=== PATIENT | female | born 1995 | race Caucasian/White ===

== ENCOUNTER 2018-06-01 16:01 | Emergency (ER) | payer SELFPAY ==
[2018-06-01] MEDS ORDERED: FENTANYL CITR 100 MCG/2 ML ONE (16:25)
[2018-06-01] MEDS ORDERED: ONDANSETRON 4 MG/2 ML VIAL ONE (16:25)
[2018-06-01 16:38] LABS: Absolute Lymphocytes (CBC) 2.6 K/uL (0.7-4.9); Absolute Monocytes 0.5 K/uL (0.1-1.3); Absolute Neutrophil 3.1 K/uL (1.8-8.0); Basophils % 1.1 % (0-1.3); Eosinophils % 1.2 % (0-4.4); Hematocrit 40.4 % (36.0-45.0); Lymphocytes % 40.9 % (15.3-44.8); MPV 9.2 fL (7.6-11.3); Monocytes % 7.2 % (3.3-12.3); RBC Red Blood Cell Count 4.45 M/uL (3.86-4.86)
--- NOTE | 2018-06-01 16:48 | RAD REPORT ---
EXAM DESCRIPTION: CT - CTHCSPWOC - 06/01/2018 4:40 pm CLINICAL HISTORY: Fall, head and neck injury COMPARISON: None. TECHNIQUE: Axial 5 mm thick images of the head were obtained. Axial 2 mm thick images of the cervic al spine were obtained with sagittal and coronal reconstruction images generated and reviewed. All CT scans are performed using dose optimization technique as appropriate and may include automated exposure control or mA/KV adjustment according to patient size. FINDINGS: No intracranial hemorrhage, mass, edema or acute intracranial finding. Ventricles are norm al. No extra-axial fluid collections. Mastoid air cells and paranasal sinuses are clear. No globe or orbit abnormality seen. No skull fracture or acute bone finding. Cervical bodies are normal in height. No subluxation abnormality. There is reversal of the usual cerv ical lordosis that could be muscle spasm or positioning artifact. No disk space narrowing. No fractur e or acute bony abnormality. Central canal detail is inherently limited. No paraspinal mass or hematoma. IMPRESSION: Negative CT head examination for acute or significant finding. No fracture or acute cervical spine finding. Central canal detail is inherently limited.
[2018-06-01 16:50] LABS: Potassium 3.6 mmol/L (3.5-5.1)
--- NOTE | 2018-06-01 17:37 | ER ---
Nurse's Notes [facility] Name: Areli Benitez Age: 22 yrs Sex: Female : 1995 Arrival Date: 06/01/2018 Time: 16:07 Bed 6 Private MD: Diagnosis: Unspecified injury at unspecified level of cervical spinal cord-Stinger/Burner Presentation: 06/01 16:11 Presenting complaint: EMS states: Playing football, slung over a friends shoulder, the jl7 friend dropped her and when she landed she landed on her chin. C/O neck, bilateral shoulder, bilateral arms and bilateral hand pain. Transition of care: patient was not received from another setting of care. Onset of symptoms was June 01, 2018. Risk Assessment: Do you want to hurt yourself or someone else? Patient reports no desire to harm self or others. Initial Sepsis Screen: Does the patient meet any 2 criteria? No. Patient's initial sepsis screen is negative. Does the patient have a suspected source of infection? No. Patient's initial sepsis screen is negative. Care prior to arrival: Cervical collar in place. Placed on backboard. 16:11 Method Of Arrival: EMS: [facility] 16:11 Acuity: PAM 3 jl7 Triage Assessment: 16:13 General: Appears in no apparent distress. uncomfortable, Behavior is cooperative, jl7 appropriate for age, anxious. Pain: Complains of pain in neck, shoulders, arms, hands. Neuro: Level of Consciousness is awake, alert, obeys commands, Oriented to person, place, time, situation. Cardiovascular: Patient's skin is warm and dry. Respiratory: Airway is patent Respiratory effort is even, unlabored, Respiratory pattern is regular, symmetrical. Derm: Skin is pink, warm \T\ dry. Musculoskeletal: Reports pain in neck, bilateral shoulders, arms and hands. DESTINATION IMAGINATION COORDINATOR: 17:03 LMP 05/24/2018 jl7 Historical: - Allergies: 16:13 No Known Allergies; jl7 - Home Meds: 16:13 None [Active]; jl7 - PMHx: 16:13 None; jl7 - PSHx: 16:13 None; jl7 - Immunization history:: Adult Immunizations unknown. - Social history:: Smoking status: Patient/guardian denies using tobacco. - Ebola Screening: : No symptoms or risks identified at this time. Screenin:15 Abuse screen: Denies threats or abuse. Denies injuries from another. Nutritional jl7 screening: No deficits noted. Tuberculosis screening: No symptoms or risk factors identified. Fall Risk IV access (20 points). Total Gaston Fall Scale indicates No Risk (0-24 pts). Assessment: 16:15 General: See triage assessment. jl7 17:00 Reassessment: Patient appears in no apparent distress at this time. Patient and/or jl7 family updated on plan of care and expected duration. Pain level reassessed. Patient is alert, oriented x 3, equal unlabored respirations, skin warm/dry/pink. Patient states feeling better. Patient states symptoms have improved. Vital Signs: 16:13 BP 137 / 93; Pulse 97; Resp 22 S; Pulse Ox 100% on R/A; jl7 17:37 BP 106 / 63; Pulse 75; Resp 16 S; Pulse Ox 100% on R/A; jl7 ED Course: 16:07 Patient arrived in ED. jr8 16:07 Sam Danielson PA is PHCP. jr8 16:07 Misbah Nicolas MD is Attending Physician. jr8 16:11 Valentina Hubbard, KAREL is Primary Nurse. jl7 16:13 Triage completed. jl7 16:13 Arm band placed on right wrist. jl7 16:15 Patient has correct armband on for positive identification. Bed in low position. Call [facility] light in reach. Side rails up X 1. Pulse ox on. NIBP on. Warm blanket given. 16:15 Initial lab(s) drawn, by ok, sent to lab. Inserted saline lock: 20 gauge in right jl7 antecubital area, using aseptic technique. Blood collected. 16:40 CT Head C Spine In Process Unspecified. EDMS 17:00 No provider procedures requiring assistance completed. jl7 17:44 IV discontinued, intact, bleeding controlled, No redness/swelling at site. Pressure jl7 dressing applied. Administered Medications: 16:28 Drug: Zofran 4 mg Route: IVP; Site: right antecubital; jl7 17:00 Follow up: Response: No adverse reaction jl7 16:30 Drug: fentaNYL (PF) 50 mcg Route: IVP; Site: right antecubital; jl7 17:00 Follow up: Response: No adverse reaction; Pain is decreased jl7 Outcome: 17:37 Discharge ordered by . ty 17:44 Discharged to home ambulatory, with family. chai 17:44 Condition: stable 17:44 Discharge instructions given to patient, family, Instructed on discharge instructions, follow up and referral plans. medication usage, Demonstrated understanding of instructions, follow-up care, medications, Prescriptions given X 2. 17:45 Patient left the ED. jl7 Signatures: Dispatcher [employer] EDSam Dial PA PA jrValentina Nassar, RN RN jl7
--- NOTE | 2018-06-01 17:37 | EDPHYS ---
Physician Documentation [facility] Name: Areli Benitez Age: 22 yrs Sex: Female : 1995 Arrival Date: 06/01/2018 Time: 16:07 Bed 6 Private MD: ED Physician Misbah Nicolas HPI: 06/01 16:49 This 22 yrs old Female presents to ER via EMS with complaints of Fall Injury. jr8 16:49 Trauma demographics: County: The injury occurred in [place] Location of Injury: The jr8 injury occurred outdoors. Mechanism of injury: Fall:. Associated injuries: The patient sustained injury to the head, neck injury. Onset: The symptoms/episode began/occurred acutely, today. The patient has not experienced similar symptoms in the past. The patient has not recently seen a physician. Was playing football. Was on some ones shoulders and was tackled landing on head and neck. No LOC. Pain to head, neck, and down arms since incident . FIELD CONTACT PERSON: 17:03 LMP 05/24/2018 jl7 Historical: - Allergies: 16:13 No Known Allergies; jl7 - Home Meds: 16:13 None [Active]; jl7 - PMHx: 16:13 None; jl7 - PSHx: 16:13 None; jl7 - Immunization history:: Adult Immunizations unknown. - Social history:: Smoking status: Patient/guardian denies using tobacco. - Ebola Screening: : No symptoms or risks identified at this time. ROS: 16:49 Eyes: Negative for injury, pain, redness, and discharge, ENT: Negative for injury, jr8 pain, and discharge, Cardiovascular: Negative for chest pain, palpitations, and edema, Respiratory: Negative for shortness of breath, cough, wheezing, and pleuritic chest pain, Abdomen/GI: Negative for abdominal pain, nausea, vomiting, diarrhea, and constipation, Back: Negative for injury and pain, MS/Extremity: Negative for injury and deformity, Skin: Negative for injury, rash, and discoloration. 16:49 Neck: Positive for pain with movement, pain at rest, stiffness, tenderness, bony tenderness. 16:49 Neuro: Positive for headache, tingling. Exam: 16:49 Head/Face: Normocephalic, atraumatic. Eyes: Pupils equal round and reactive to light, jr8 extra-ocular motions intact. Lids and lashes normal. Conjunctiva and sclera are non-icteric and not injected. Cornea within normal limits. Periorbital areas with no swelling, redness, or edema. ENT: Nares patent. No nasal discharge, no septal abnormalities noted. Tympanic membranes are normal and external auditory canals are clear. Oropharynx with no redness, swelling, or masses, exudates, or evidence of obstruction, uvula midline. Mucous membranes moist. Cardiovascular: Regular rate and rhythm with a normal S1 and S2. No gallops, murmurs, or rubs. Normal PMI, no JVD. No pulse deficits. Respiratory: Lungs have equal breath sounds bilaterally, clear to auscultation and percussion. No rales, rhonchi or wheezes noted. No increased work of breathing, no retractions or nasal flaring. Abdomen/GI: Soft, non-tender, with normal bowel sounds. No distension or tympany. No guarding or rebound. No evidence of tenderness throughout. Back: No spinal tenderness. No costovertebral tenderness. Full range of motion. Skin: Warm, dry with normal turgor. Normal color with no rashes, no lesions, and no evidence of cellulitis. MS/ Extremity: Pulses equal, no cyanosis. Neurovascular intact. Full, normal range of motion. 16:49 Neck: External neck: is normal, C-spine: C-collar placed MANUFACTURING SUPPORT ENGINEER, Back board [employer]UFACTURING SUPPORT ENGINEER vertebral tenderness, that is moderate, appreciated at C3, C4 and C5, Thyroid: appears normal, Trachea: is midline with no obvious abnormalities, ROM/movement: pain, that is mild, with any movement. 16:49 Neuro: Orientation: to person, place, time \T\ situation. Mentation: is normal, Memory: is normal, Cranial nerves: CN I not tested, CN II- XII are normal as tested, extraocular movements are intact, Facial palsy and sensory deficits are absent. Speech is clear and appropriate. Tongue strength is normal, Motor: moves all fours, strength is 5/5 in all extremities, Sensation: tingling, that is mild, of the right arm and left arm, Gait: not tested. seizure activity, is not displayed by the patient, Abnormal movements: there are no abnormal movements. Vital Signs: 16:13 BP 137 / 93; Pulse 97; Resp 22 S; Pulse Ox 100% on R/A; jl7 17:37 BP 106 / 63; Pulse 75; Resp 16 S; Pulse Ox 100% on R/A; jl7 MDM: 16:07 Patient medically screened. jr8 17:32 Data reviewed: vital signs, nurses notes, lab test result(s), radiologic studies, CT jr8 scan. Data interpreted: Pulse oximetry: on room air is 100 %. Interpretation: normal. Counseling: I had a detailed discussion with the patient and/or guardian regarding: the historical points, exam findings, and any diagnostic results supporting the discharge/admit diagnosis, lab results, radiology results, the need for outpatient follow up, a family practitioner, to return to the emergency department if symptoms worsen or persist or if there are any questions or concerns that arise at home. ED course: Patient feeling better. Symptoms resolving. Most likely Stinger/Burner injury. No neurologic or sensory deficits noted . 06/01 16:07 Order name: CBC with Diff; Complete Time: 16:42 [facility] 06/01 16:07 Order name: Basic Metabolic Panel; Complete Time: 16:56 [facility] 06/01 16:07 Order name: IV; Complete Time: 16:59 8 06/01 16:07 Order name: CT Head C Spine; Complete Time: 16:56 [facility] Administered Medications: 16:28 Drug: Zofran 4 mg Route: IVP; Site: right antecubital; [facility] 17:00 Follow up: Response: No adverse reaction [facility] 16:30 Drug: fentaNYL (PF) 50 mcg Route: IVP; Site: right antecubital; [facility] 17:00 Follow up: Response: No adverse reaction; Pain is decreased [facility] Disposition: 18:56 Co-signature as Attending Physician, Misbah Nicolas MD Available for consultation at [facility] all times . Disposition: 06/01/18 17:37 Discharged to Home. Impression: Unspecified injury at unspecified level of cervical spinal cord - Stinger/Burner. - Condition is Stable. - Discharge Instructions: Burner or Stinger Nerve Injury. - Prescriptions for Ibuprofen 800 mg Oral Tablet - take 1 tablet by ORAL route every 12 hours As needed take with food; 20 tablet. Cyclobenzaprine 10 mg Oral Tablet - take 1 tablet by ORAL route every 8 hours As needed; 30 tablet. - Medication Reconciliation Form, Thank You Letter, Antibiotic Education, Prescription Opioid Use form. - Follow up: Private Physician; When: 1 week; Reason: Recheck today's complaints, Continuance of care, Re-evaluation by your physician. - Problem is new. - Symptoms have improved. Signatures: Dispatcher [employer] EDMS Sam Danielson PA PA jr8 Valentina Hubbard RN RN jl7 Misbah Nicolas MD MD ps1 Corrections: (The following items were deleted from the chart) 17:45 17:37 06/01/2018 17:37 Discharged to Home. Impression: Unspecified injury at jl7 unspecified level of cervical spinal cord - Stinger/Burner. Condition is Stable. Forms are Medication Reconciliation Form, Thank You Letter, Antibiotic Education, Prescription Opioid Use. Follow up: Private Physician; When: 1 week; Reason: Recheck today's complaints, Continuance of care, Re-evaluation by your physician. Problem is new. Symptoms have improved. jr8
== END 2018-06-01 17:45 | disposition home or self-care (01) ==
LOC: ER 16:01
DX: S14.109A Unspecified injury at unspecified level of cervical spinal cord, initial encounter (principal); W19.XXXA Unspecified fall, initial encounter; Y93.61 Activity, american tackle football; Y92.9 Unspecified place or not applicable
CPT/HCPCS: 36415; 70450; 72125; 80048; 85025; 96374; 96375; 99284; J2405; J3010